=== PATIENT | male | born 1965 | race Caucasian/White ===

== ENCOUNTER → 2020-06-25 | Day surgery (SDC) | payer OTHER ==
[~2020-06-25] MED LIST: DAILY MULTIPLE1 EAC1 PO; LISINOPRIL-HCT1 EACH PO; OTEZLA30 MG PO
== END | disposition home or self-care (01) ==
LOC: FAS 06:44
DX: D12.2 Benign neoplasm of ascending colon (principal); I10 Essential (primary) hypertension; L40.9 Psoriasis, unspecified; Z88.0 Allergy status to penicillin; Z87.442 Personal history of urinary calculi; Z80.0 Family history of malignant neoplasm of digestive organs; Z98.890 Other specified postprocedural states; Z20.822 Contact with and (suspected) exposure to COVID-19
CPT/HCPCS: J2704; J7120